=== PATIENT | female | born 1980 | race Caucasian/White ===

== ENCOUNTER 2016-09-15 08:03 | Emergency (ER) | payer OTHER ==
[2016-09-15 08:49] LABS: BASO % 0.2 % (0.0-1.0); EOS # 0.1 K/mm3 (0.0-0.50); EOS % 0.6 % (0.0-3.0); LARGE UNSTAINED CELL # 0.1 K/mm3 (0.0-0.4); LARGE UNSTAINED CELL % 0.7 % (0.0-4.0); LYMPH # 0.6 K/mm3 (1.5-4.5); LYMPH % 3.7 % (24.0-44.0); MEAN CORPUSCULAR HEMOGLOBIN 29.2 pg (27.0-33.0); MEAN CORPUSCULAR HGB CONC 32.5 g/dl (32.0-36.5); MEAN CORPUSCULAR VOLUME 89.8 fl (80.0-96.0); MONO # 0.7 K/mm3 (0.0-0.8); MONO % 5.1 % (0.0-5.0); NEUTROPHILS % 89.7 % (36.0-66.0); PLATELET COUNT, AUTOMATED 316 k/mm3 (150-450); RED CELL DISTRIBUTION WIDTH 12.4 % (11.5-14.5); WHITE BLOOD COUNT 13.4 K/mm3 (4.0-10.0)
[2016-09-15 09:08] LABS: CONTROL LINE HCG INT CTR LINE PRESENT
[2016-09-15 09:17] LABS: ANION GAP 9 MEQ/L (8-16); BLOOD UREA NITROGEN 8 MG/DL (7-18); CALCIUM LEVEL 8.2 MG/DL (8.5-10.1); CARBON DIOXIDE LEVEL 24 MEQ/L (21-32); CHLORIDE LEVEL 103 MEQ/L (98-107); CREATININE FOR GFR 0.83 MG/DL (0.55-1.02); GLOMERULAR FILTRATION RATE > 60.0 (>60); GLUCOSE, FASTING 143 MG/DL (70-105); MAGNESIUM LEVEL 1.6 MG/DL (1.8-2.4); POTASSIUM SERUM 3.6 MEQ/L (3.5-5.1); SODIUM LEVEL 136 MEQ/L (136-145)
[2016-09-15 09:23] LABS: INR 1.29
[2016-09-15] MEDS ORDERED: PENICILLIN V POTASSIUM 500 MG TAB As Ordered ONE (09:23)
[2016-09-15] MEDS ORDERED: ISOVUE-370 76% 100ML VIAL (Q9967) As Ordered ONE (09:33)
[2016-09-15] MEDS ORDERED: MAGNESIUM SULFATE 1 GM/100 ML D5W BAG (10MG/ML) (J3475) As Ordered ONE (09:54)
[2016-09-15] MEDS ORDERED: ACETAMINOPHEN 325 MG TAB As Ordered ONE (11:00)
--- NOTE | 2016-09-15 11:06 | EDDOCDS ---
Nurse's Notes [facility] Name: Dior Trujillo Age: 35 yrs Sex: Female : 1980 Arrival Date: 09/15/2016 Time: 08:03 Bed 15 Private MD: Sathya Diagnosis: Syncope and collapse-Brugado syndrome Presentation: 09/15 08:07 Presenting complaint: Patient states: sore throat and states she passed out 3 times pml while trying to take a drink this AM. unwitnessed events. states she fell to the floor during events. Risk factors: Stridor is not present. Drooling is not present. Shortness of breath is not present. Cellulitis is not present. Adult Sepsis Screening: The patient does not have new or worsening altered mentation. Patient's respiratory rate is less than 22. Systolic blood pressure is greater than 100. Patient has a qSOFA score of 0- Negative Sepsis Screen. Suicide/Homicide risk assessment- the patient denies having any suicidal and/or homicidal ideations and does not present with any other emotional, behavioral or mental health complaints. Status: Patient is not a public services librarian or dependent. Transition of care: patient was not received from another setting of care. 08:07 Acuity: TAMMIE Level 3 pml 08:07 Method Of Arrival: Walkin/Carried/Asstd pml Triage Assessment: 08:09 General: Appears in no apparent distress, Behavior is appropriate for age, cooperative. pml Pain: Location: throat Pain currently is 7 out of 10 on a pain scale. HIV screening NA for this visit Offered previously. EENT: Reports difficulty swallowing pain when swallowing. 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 Zyrtec 10 mg oral TbDL 10 mg daily - PMHx: none; - PSHx: none; - Social history: Smoking status: Patient states was never smoker of tobacco. No barriers to communication noted, The patient speaks fluent Yoruba, Speaks appropriately for age. - Family history: Pertinent for heart disease. - : The pt / caregiver states he / she is not on anticoagulants. Home medication list is obtained from the patient. - Exposure Risk Screening:: None identified. Screenin:44 Screening information is obtained from the patient. Fall risk: At risk due to prior jjr history of falls, The following interventions are performed due to a positive Fall Risk Screen: added to special handling. Assistance ADL's: requires no assistance with activities of daily living. Abuse/DV Screen: The patient / caregiver reports he/she is: not in a situation that causes fear, pain or injury. Nutritional screening: No deficits noted. Advance Directives: There is no active DNR order. home support is adequate. 08:45 Fall Risk. jjr Assessment: 08:43 General: Appears in no apparent distress, well nourished, well groomed, Behavior is jjr appropriate for age. Pain: Location: throat. Neurological: No deficits noted. Reports dizziness, a syncopal episode. EENT: Throat is reddened. Cardiovascular: Rhythm is sinus tachycardia Chest pain is denied. Respiratory: Airway is patent Respiratory effort is even, unlabored, Respiratory pattern is regular. GI: Reports tolerance of fluids, Denies diarrhea, vomiting. Derm: No deficits noted. 09:27 General: Appears in no apparent distress, comfortable, Behavior is appropriate for age, kc3 cooperative. Pain: Denies pain. Neurological: Level of Consciousness is awake, alert, obeys commands, Oriented to person, place, time. Cardiovascular: Rhythm is sinus rhythm Chest pain is denied. Respiratory: Airway is patent Respiratory effort is even, unlabored. Derm: Skin is pink, warm & dry. 10:20 General: Appears in no apparent distress, comfortable, Behavior is appropriate for age, kc3 cooperative, Pt assisted onto bed esquivel and back to comfortable position in bed. Family at bedside. . Pain: Denies pain. Neurological: Level of Consciousness is awake, alert, obeys commands, Oriented to person, place, time. Cardiovascular: Rhythm is sinus tachycardia. Respiratory: Airway is patent Respiratory effort is even, unlabored. Derm: Skin is pink, warm & dry. 11:02 General: Appears in no apparent distress, comfortable, Behavior is appropriate for age, kc3 cooperative. Pain: Denies pain. Neurological: Level of Consciousness is awake, alert, obeys commands, Oriented to person, place, time. Cardiovascular: Rhythm is sinus rhythm Chest pain is denied. Respiratory: Respiratory effort is even, unlabored. Derm: Skin is pink, warm & dry. Vital Signs: 08:09 BP 131 / 71; Pulse 110; Resp 20; Temp 99.9(O); Pulse Ox 95% on R/A; Weight 111.13 kg; pml Height 5 ft. 5 in. (165.10 cm); Pain 7/10; 08:52 BP 125 / 65 RA Supine (auto/lg); Pulse 97; jjr 08:52 BP 121 / 63 RA Sitting (auto/lg); Pulse 111; jjr 08:52 BP 122 / 65 RA Standing (auto/lg); Pulse 105; jjr 08:52 Pulse 98 MON; Pulse Ox 100% ; kc3 08:53 BP 121 / 65 (auto/); kc3 09:07 Pulse 96 MON; Pulse Ox 100% ; kc3 09:08 BP 121 / 62 (auto/); kc3 09:22 Pulse 94 MON; Pulse Ox 97% ; kc3 09:23 BP 119 / 65 (auto/); kc3 09:37 Pulse 96 MON; Pulse Ox 99% ; kc3 09:38 BP 122 / 68 (auto/); kc3 09:52 Pulse 110 MON; Pulse Ox 100% ; kc3 09:53 BP 140 / 81 (auto/); kc3 10:07 Pulse 100 MON; Pulse Ox 97% ; kc3 10:08 BP 136 / 76 (auto/); kc3 10:22 Pulse 100 MON; Pulse Ox 97% ; kc3 10:23 BP 138 / 74 (auto/); kc3 10:37 Pulse 102 MON; Pulse Ox 99% ; kc3 10:38 BP 140 / 80 (auto/); kc3 11:02 BP 135 / 82; Pulse 100; Resp 20; Temp 101.1; Pulse Ox 97% on R/A; Pain 0/10; kc3 08:09 Body Mass Index 40.77 (111.13 kg, 165.10 cm) pml 08:52 tolerated position changes without dizziness jjr 11:02 Dr. Garcia aware of pt temp and pt medicated. kc3 Vitals: 08:09 Log In Time: September 15, 2016 at 08:02. pml 08:43 Strep Screen is obtained and tested: Positive. jr ED Course: 08:05 Patient visited by Miesha Cabello. mm15 08:05 Sathya is Private Physician. mm15 08:05 Patient moved to Waiting mm15 08:08 Triage Initiated pml 08:10 Patient visited by Keira MoiseCECE. pml 08:11 Renata Kelsey MD is Attending Physician. ml 08:11 Patient visited by Renata Kelsey MD. ml 08:11 Patient moved to 15 pml 08:23 EKG done. (by ED staff). Reviewed by Renata Kelsey MD. jrd 08:42 PTT Sent. jjr 08:42 PT/INR Sent. jjr 08:43 HCG,Serum Qualitative Sent. jjr 08:43 MED Profile Sent. jjr 08:43 CBC with Diff Sent. jjr 08:43 Inserted saline lock: 20 gauge in left antecubital area and blood collected. Labs jjr drawn. (by ED staff). Sent per order to lab. 08:44 The patient / caregiver is instructed regarding the plan of care and ED course. Cardiac jjr monitor on. Pulse ox on. NIBP on. 08:45 Patient visited by Yahaira Castle RN. jjr 09:00 MAGNESIUM LEVEL Sent. jjr 09:00 FT4&TSH PANEL Sent. jjr 09:01 Lulu Hilton,RN is Primary Nurse. kc3 09:19 Patient visited by Lulu Hilton,CECE. kc3 10:18 [facility] Payment Agreement was scanned into [employer] and attached to record. mpb 10:48 No procedures done that require assistance. kc3 Administered Medications: 08:43 Drug: NS 0.9% 1000 ml [sodium chloride 0.9 % intravenous solution] Route: IV; Rate: jjr bolus; Site: left antecubital; 10:49 Follow up: IV Status: Completed infusion kc3 09:26 Drug: Penicillin VK 500 mg [penicillin V potassium 250 mg tablet (2 tabs)] Route: PO; kc3 10:02 Drug: Magnesium Sulfate 1 grams [magnesium sulfate 1 gram/100 mL in dextrose 5 % ead intravenous piggyback] {Co-Signature: dy (Wally Mancera RN).} Route: IVPB; Infused Over: 0.5 hrs; Site: left antecubital; 10:49 Follow up: IV Status: Completed infusion kc3 11:04 Drug: Acetaminophen 975 mg [acetaminophen 325 mg tablet (3 tabs)] Route: PO; kc3 Order Results: Lab Order: CBC with Diff; SPEC'M 09/15/16 08:39 Test: WHITE BLOOD COUNT; Value: 13.4; Range: 4.0-10.0; Abnormal: Above high normal; Units: K/mm3; Status: F Test: RED BLOOD COUNT; Value: 4.19; Range: 4.00-5.40; Units: M/mm3; Status: F Test: HEMOGLOBIN; Value: 12.2; Range: 12.0-16.0; Units: g/dl; Status: F Test: HEMATOCRIT; Value: 37.6; Range: 36.0-47.0; Units: %; Status: F Test: MEAN CORPUSCULAR VOLUME; Value: 89.8; Range: 80.0-96.0; Units: fl; Status: F Test: MEAN CORPUSCULAR HEMOGLOBIN; Value: 29.2; Range: 27.0-33.0; Units: pg; Status: F Test: MEAN CORPUSCULAR HGB CONC; Value: 32.5; Range: 32.0-36.5; Units: g/dl; Status: F Test: RED CELL DISTRIBUTION WIDTH; Value: 12.4; Range: 11.5-14.5; Units: %; Status: F Test: PLATELET COUNT, AUTOMATED; Value: 316; Range: 150-450; Units: k/mm3; Status: F Test: NEUTROPHILS %; Value: 89.7; Range: 36.0-66.0; Abnormal: Above high normal; Units: %; Status: F Test: LYMPH %; Value: 3.7; Range: 24.0-44.0; Abnormal: Below low normal; Units: %; Status: F Test: MONO %; Value: 5.1; Range: 0.0-5.0; Abnormal: Above high normal; Units: %; Status: F Test: EOS %; Value: 0.6; Range: 0.0-3.0; Units: %; Status: F Test: BASO %; Value: 0.2; Range: 0.0-1.0; Units: %; Status: F Test: LARGE UNSTAINED CELL %; Value: 0.7; Range: 0.0-4.0; Units: %; Status: F Test: NEUTROPHILS #; Value: 12.0; Range: 1.8-7.7; Abnormal: Above high normal; Units: K/mm3; Status: F Test: LYMPH #; Value: 0.6; Range: 1.5-4.5; Abnormal: Below low normal; Units: K/mm3; Status: F Test: MONO #; Value: 0.7; Range: 0.0-0.8; Units: K/mm3; Status: F Test: EOS #; Value: 0.1; Range: 0.0-0.50; Units: K/mm3; Status: F Test: BASO #; Value: 0.0; Range: 0.0-0.2; Units: K/mm3; Status: F Test: LARGE UNSTAINED CELL #; Value: 0.1; Range: 0.0-0.4; Units: K/mm3; Status: F Lab Order: MED Profile; [facility] 09/15/16 08:39 Test: GLUCOSE, FASTING; Value: 143; Range: 70-105; Abnormal: Above high normal; Units: MG/DL; Status: F Test: BLOOD UREA NITROGEN; Value: 8; Range: 7-18; Units: MG/DL; Status: F Test: CREATININE FOR GFR; Value: 0.83; Range: 0.55-1.02; Units: MG/DL; Status: F Test: SODIUM LEVEL; Range: 136-145; Units: MEQ/L; Status: I Test: POTASSIUM SERUM; Range: 3.5-5.1; Units: MEQ/L; Status: I Test: CHLORIDE LEVEL; Range: 98-107; Units: MEQ/L; Status: I Test: CARBON DIOXIDE LEVEL; Range: 21-32; Units: MEQ/L; Status: I Test: ANION GAP; Range: 8-16; Units: MEQ/L; Status: I Test: CALCIUM LEVEL; Range: 8.5-10.1; Units: MG/DL; Status: I Test: GLOMERULAR FILTRATION RATE; Value: > 60.0; Range: >60; Status: F Test: SODIUM LEVEL; Value: 136; Range: 136-145; Units: MEQ/L; Status: F Test: POTASSIUM SERUM; Value: 3.6; Range: 3.5-5.1; Units: MEQ/L; Status: F Test: CHLORIDE LEVEL; Value: 103; Range: 98-107; Units: MEQ/L; Status: F Test: CARBON DIOXIDE LEVEL; Value: 24; Range: 21-32; Units: MEQ/L; Status: F Test: ANION GAP; Value: 9; Range: 8-16; Units: MEQ/L; Status: F Test: CALCIUM LEVEL; Value: 8.2; Range: 8.5-10.1; Abnormal: Below low normal; Units: MG/DL; Status: F Test Note: ; Units are mL/min/1.73 m2 Chronic Kidney Disease Staging per NKF: Stage I & II GFR >=60 Normal to Mildly Decreased Stage III GFR 30-59 Moderately Decreased Stage IV GFR 15-29 Severely Decreased Stage V GFR <15 Very Little GFR Left ESRD GFR <15 on WIRE WORKER Lab Order: HCG,Serum Qualitative; 09/15/16 08:39 Test: HCG, SERUM QUALITATIVE; Value: NEGATIVE; Range: NEGATIVE; Status: F Lab Order: PT/INR; 09/15/16 08:39 Test: PROTHROMBIN TIME; Value: 16.2; Range: 12.3-14.5; Abnormal: Above high normal; Units: SECONDS; Status: F Test: INR; Value: 1.29; Status: F Test Note: ; THERAPUTIC HUMAN INR VALUES INDICATIONS NORMAL RANGES PROPHYLAXIS/TREATMENT OF: VENOUS THROMBOSIS 2.0-3.0 PULMONARY EMBOLISM 2.0-3.0 PREVENTION OF SYSTEMIC EMBOLISM FROM: TISSUE HEART VALVES 2.0-3.0 ACUTE MYOCARDIAL INFARCTION 2.0-3.0 VALVULAR HEART DISEASE 2.0-3.0 ATRIAL FIBRILLATION 2.0-3.0 MECHANICAL VALVES(HIGH RISK) 2.5-3.5 RECURRENT MYOCARDIAL INFARCTION 2.5-3.5 Lab Order: PTT; 09/15/16 08:39 Test: PARTIAL THROMBOPLASTIN TIME; Value: 30.9; Range: 26.6-37.1; Units: SECONDS; Status: F Lab Order: FT4&TSH PANEL; 09/15/16 08:39 Test: THYROID STIMULATING HORMONE; Value: 0.643; Range: 0.358-3.740; Units: uIU/ML; Status: F Test: FREE T4; Value: 1.00; Range: 0.76-1.46; Units: NG/DL; Status: F Lab Order: MAGNESIUM LEVEL; SPEC'M 09/15/16 08:39 Test: MAGNESIUM LEVEL; Value: 1.6; Range: 1.8-2.4; Abnormal: Below low normal; Units: MG/DL; Status: F Lab Order: CIP; SPEC'M 09/15/16 08:39 Test: CPK CREATINE PHOSPHOKINASE; Value: 48; Range: 26-192; Units: U/L; Status: F Test: CK-MB VALUE MASS; Value: 1.0; Range: 0.0-3.6; Units: NG/ML; Status: F Test: MB/CK RELATIVE INDEX; Value: 2.08; Range: < OR =4; Status: F Test Note: ; DIAGNOSIS CRITERIA MMB ng/ml Relative Index (RI) NON-AMI < or = 5 N/A GARCIA ZONE > 5 < or = 4 AMI > 5 > 4 Lab Order: Troponin; SPEC09/15/16 08:39 Test: TROPONIN I; Value: < 0.02; Range: < 0.10; Units: NG/ML; Status: F Test Note: ; Troponin I Reference Interval for [place] LOCI: 99th Percentile= 0.00-0.045 ng/ml Risk Stratification: <= 0.10 ng/ml Decreased Risk for Adverse Clinical Events. 0.10-1.50 ng/ml Increased Risk for Adverse Clinical Events. Evaluation of additional criterion and/or repeat testing in 2-6 hours is suggested to rule out myocardial damage. >= 1.50 ng/ml Indicative of Myocardial Injury. Outcome: 09:44 ER care complete, transfer ordered by Provider. 10:48 Discharge Assessment: patient administered narcotics - no. CT Study completed. [facility] accompany Pt. 11:03 The following High Risk Discharge criteria are identified: None. Transferred to [address] by EMS ground [facility] report to accompanying personnel aden Bernal, Robbie Spencer, medic, Transfer form completed. x-rays sent w/ patient. Condition: stable. 11:05 [facility] Signatures: Renata Kelsey MD MD ml Raymond, Jessica, RN RN Keira Petersen RN RN Miesha Hoyt mm15 Cheryl AlvaRN RN Poncho French, SMOG TECHNICIAN SMOG TECHNICIAN jrd Lulu Hilton RN RN kc3 Jasper Shin, Reg Reg mpb Wally Mancera RN dy Corrections: (The following items were deleted from the chart) 08:43 08:42 MAGNESIUM LEVEL+LAB sent. jjr EDMS 08:43 08:43 FT4&TSH PANEL+LAB sent. jr EDMS MTDD
--- NOTE | 2016-09-15 11:06 | EDDOCDS ---
Physician Documentation [facility] Name: Dior Trujillo Age: 35 yrs Sex: Female : 1980 Arrival Date: 09/15/2016 Time: 08:03 Bed 15 Private MD: Sathya Disposition: 09/15 11:02 Critical Care:. ml Disposition: 09/15/16 09:44 Transfer ordered to [facility]. Diagnosis is Syncope and collapse - Brugado syndrome. - Reason for transfer: Higher level of care. - Accepting physician is dr ramirez. - Condition is Unchanged. - Problem is new. - Symptoms are unchanged. Historical: - Allergies: seafood; - Home Meds: 1. Zyrtec 10 mg oral TbDL 10 mg daily - PMHx: none; - PSHx: none; - Social history: Smoking status: Patient states was never smoker of tobacco. No barriers to communication noted, The patient speaks fluent [place], Speaks appropriately for age. - Family history: Pertinent for heart disease. - : The pt / caregiver states he / she is not on anticoagulants. Home medication list is obtained from the patient. - Exposure Risk Screening:: None identified. 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 5 in. (165.10 cm); Pain 7/10; 08:52 BP 125 / 65 RA Supine (auto/lg); Pulse 97; jjr 08:52 BP 121 / 63 RA Sitting (auto/lg); Pulse 111; jjr 08:52 BP 122 / 65 RA Standing (auto/lg); Pulse 105; jjr 08:52 Pulse 98 MON; Pulse Ox 100% ; kc3 08:53 BP 121 / 65 (auto/); kc3 09:07 Pulse 96 MON; Pulse Ox 100% ; kc3 09:08 BP 121 / 62 (auto/); kc3 09:22 Pulse 94 MON; Pulse Ox 97% ; kc3 09:23 BP 119 / 65 (auto/); kc3 09:37 Pulse 96 MON; Pulse Ox 99% ; kc3 09:38 BP 122 / 68 (auto/); kc3 09:52 Pulse 110 MON; Pulse Ox 100% ; kc3 09:53 BP 140 / 81 (auto/); kc3 10:07 Pulse 100 MON; Pulse Ox 97% ; kc3 10:08 BP 136 / 76 (auto/); kc3 10:22 Pulse 100 MON; Pulse Ox 97% ; kc3 10:23 BP 138 / 74 (auto/); kc3 10:37 Pulse 102 MON; Pulse Ox 99% ; kc3 10:38 BP 140 / 80 (auto/); kc3 11:02 BP 135 / 82; Pulse 100; Resp 20; Temp 101.1; Pulse Ox 97% on R/A; Pain 0/10; kc3 08:09 Body Mass Index 40.77 (111.13 kg, 165.10 cm) pml 08:52 tolerated position changes without dizziness jjr 11:02 Dr. Garcia aware of pt temp and pt medicated. kc3 MDM: 08:13 ECG WITH READING ER PHYS+CARDIAG ordered. EDMS 08:20 IV Saline Lock ordered. ml 08:20 NS 0.9% 1000 ml IV at bolus once ordered. ml 08:20 Strep Screen, Nursing ordered. ml 08:20 Aviation Electrical Technician/Pulse Ox/q 15 min VS ordered. ml 08:20 Rhythm Strip to chart ordered. ml 08:20 Orthostatic VS ordered. ml 08:20 CBC with Diff Ordered. EDMS 08:20 MED Profile Ordered. EDMS 08:20 HCG,Serum Qualitative Ordered. EDMS 08:31 Chest, 1 View Ordered. EDMS 08:37 PT/INR Ordered. EDMS 08:37 PTT Ordered. EDMS 08:45 FT4&TSH PANEL Ordered. EDMS 08:45 MAGNESIUM LEVEL Ordered. EDMS 09:04 Penicillin VK 500 mg PO once ordered. ml 09:05 CIP Ordered. EDMS 09:05 Troponin Ordered. EDMS 09:06 CBC with Diff Reviewed. ml 09:13 HCG,Serum Qualitative Reviewed. ml 09:27 MED Profile Reviewed. ml 09:27 PT/INR Reviewed. ml 09:27 MAGNESIUM LEVEL Reviewed. ml 09:27 HCG,Serum Qualitative Reviewed. ml 09:27 PTT Reviewed. ml 09:27 FT4&TSH PANEL Reviewed. ml 09:28 CT Chest Angio R/O PE Ordered. EDMS 09:41 CIP Reviewed. ml 09:41 Troponin Reviewed. ml 09:42 Magnesium Sulfate 1 grams IVPB once over 0.5 hrs; administer over 30 min ordered. ml 10:18 Financial registration complete. mpb 10:18 [facility] Payment Agreement was scanned into [employer] and attached to record. mpb 10:59 Acetaminophen Tablet 975 mg PO once ordered. ml Administered Medications: 08:43 Drug: NS 0.9% 1000 ml [sodium chloride 0.9 % intravenous solution] Route: IV; Rate: jjr bolus; Site: left antecubital; 10:49 Follow up: IV Status: Completed infusion kc3 09:26 Drug: Penicillin VK 500 mg [penicillin V potassium 250 mg tablet (2 tabs)] Route: PO; kc3 10:02 Drug: Magnesium Sulfate 1 grams [magnesium sulfate 1 gram/100 mL in dextrose 5 % ead intravenous piggyback] {Co-Signature: miki (Wally Mancera RN).} Route: IVPB; Infused Over: 0.5 hrs; Site: left antecubital; 10:49 Follow up: IV Status: Completed infusion kc3 11:04 Drug: Acetaminophen 975 mg [acetaminophen 325 mg tablet (3 tabs)] Route: PO; kc3 Critical Care Time: 11:02 Critical care time: Bedside Care: 90 minutes, Consultation: 10 minutes. Total time: 100 ml minutes Signatures: Dispatcher [employer] EDMS Renata Kelsey MD MD Keira Moise,RN Lulu Moon RN RN kc3 Jasper Shin, Reg Reg mpb Yahaira Castle RN, Emily RN ead David Youngs RN dy The chart was reviewed and I authenticate all verbal orders and agree with the evaluation and treatment provided.Corrections: (The following items were deleted from the chart) 08:43 08:31 FT4&TSH PANEL+LAB ordered. EDMS EDMS 08:43 08:34 MAGNESIUM LEVEL+LAB ordered. EDMS EDMS Attachments: 10:18 [facility] Payment Agreement mpb MTDD
--- NOTE | 2016-09-15 13:56 | REP ---
AP PORTABLE CHEST: 09/15/2016. Clinical history: Syncope. No prior study. Findings: The lungs are well inflated. There is no effusion, acute infiltrate, atelectasis or mass. The heart, mediastinal and hilar contours are normal. Airway intact and there is no mediastinal widening. The aorta was unremarkable. Impression: 1. Negative portable chest for acute finding. Signed by Mansoor Kwok MD 09/15/2016 07:24 P
--- NOTE | 2016-09-15 14:23 | REP ---
CT ANGIOGRAM CHEST: 09/15/2016. Clinical history: Syncope. Comparison: Portable chest this date. Technique: A bolus of 75 mL of Isovue [address] pulmonary angiogram protocol including thick slab MIP coronal and sagittal reformats. Findings: Lung zamorano show some minor dependent atelectatic changes and without infiltrate, effusion or mass. There is no pleural thickening or pleural plaque. No pneumothorax, or pneumomediastinum. Heart size upper limits normal. There is no pericardial thickening or effusion. I see no hiatal hernia. The aorta is without aneurysm or dissection. The main, right and left pulmonary arteries are without filling defects in the mediastinum. The lobar, segmental and visible subsegmental pulmonary arteries are also without filling defect or vessel cutoff to suggest pulmonary embolism. No mediastinal or hilar pathologic sized adenopathy and the axillary and supraclavicular region show no mass or adenopathy. Bone windows show the sternum, manubrium, medial clavicles, humeral heads, scapulae, ribs and spine without fracture or acute finding. A few small marginal osteophytes mid and lower thoracic spine which I would regard as normal for age. In the upper abdomen visualized portion of liver was intact. The spleen is not enlarged. Only a portion of gallbladder and pancreas included, but were unremarkable. Adrenal glands normal. Impression: 1. Negative CT pulmonary angiogram for pulmonary embolism. There is no effusion, acute infiltrate or mass. Lungs somewhat hypoinflated in this supine exam but no acute finding. Aorta without aneurysm or dissection. No pneumothorax, pneumomediastinum or other acute finding. 2. No acute finding in the upper abdomen. Signed by Mansoor Kwok MD 09/15/2016 07:26 P
--- NOTE | 2016-09-15 19:31 | ECGEPIP ---
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
--- NOTE | 2016-09-17 12:06 | EDDOCDS ---
Nurse's Notes [facility] Name: Angelique Trujillo Age: 35 yrs Sex: Female : 1980 Arrival Date: 09/15/2016 Time: 08:03 Bed 15 Private MD: Sathya Diagnosis: Syncope and collapse-Brugado syndrome Presentation: 09/15 08:07 Presenting complaint: Patient states: sore throat and states she passed out 3 times pml while trying to take a drink this AM. unwitnessed events. states she fell to the floor during events. Risk factors: Stridor is not present. Drooling is not present. Shortness of breath is not present. Cellulitis is not present. Adult Sepsis Screening: The patient does not have new or worsening altered mentation. Patient's respiratory rate is less than 22. Systolic blood pressure is greater than 100. Patient has a qSOFA score of 0- Negative Sepsis Screen. Suicide/Homicide risk assessment- the patient denies having any suicidal and/or homicidal ideations and does not present with any other emotional, behavioral or mental health complaints. Status: Patient is not a director of medical staff services or dependent. Transition of care: patient was not received from another setting of care. 08:07 Acuity: TAMMIE Level 3 pml 08:07 Method Of Arrival: Walkin/Carried/Asstd pml Triage Assessment: 08:09 General: Appears in no apparent distress, Behavior is appropriate for age, cooperative. pml Pain: Location: throat Pain currently is 7 out of 10 on a pain scale. HIV screening NA for this visit Offered previously. EENT: Reports difficulty swallowing pain when swallowing. 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 Zyrtec 10 mg oral TbDL 10 mg daily - PMHx: none; - PSHx: none; - Social history: Smoking status: Patient states was never smoker of tobacco. No barriers to communication noted, The patient speaks fluent Estonian, Speaks appropriately for age. - Family history: Pertinent for heart disease. - : The pt / caregiver states he / she is not on anticoagulants. Home medication list is obtained from the patient. - Exposure Risk Screening:: None identified. Screenin:44 Screening information is obtained from the patient. Fall risk: At risk due to prior jjr history of falls, The following interventions are performed due to a positive Fall Risk Screen: added to special handling. Assistance ADL's: requires no assistance with activities of daily living. Abuse/DV Screen: The patient / caregiver reports he/she is: not in a situation that causes fear, pain or injury. Nutritional screening: No deficits noted. Advance Directives: There is no active DNR order. home support is adequate. 08:45 Fall Risk. jjr Assessment: 08:43 General: Appears in no apparent distress, well nourished, well groomed, Behavior is jjr appropriate for age. Pain: Location: throat. Neurological: No deficits noted. Reports dizziness, a syncopal episode. EENT: Throat is reddened. Cardiovascular: Rhythm is sinus tachycardia Chest pain is denied. Respiratory: Airway is patent Respiratory effort is even, unlabored, Respiratory pattern is regular. GI: Reports tolerance of fluids, Denies diarrhea, vomiting. Derm: No deficits noted. 09:27 General: Appears in no apparent distress, comfortable, Behavior is appropriate for age, kc3 cooperative. Pain: Denies pain. Neurological: Level of Consciousness is awake, alert, obeys commands, Oriented to person, place, time. Cardiovascular: Rhythm is sinus rhythm Chest pain is denied. Respiratory: Airway is patent Respiratory effort is even, unlabored. Derm: Skin is pink, warm & dry. 10:20 General: Appears in no apparent distress, comfortable, Behavior is appropriate for age, kc3 cooperative, Pt assisted onto bed esquivel and back to comfortable position in bed. Family at bedside. . Pain: Denies pain. Neurological: Level of Consciousness is awake, alert, obeys commands, Oriented to person, place, time. Cardiovascular: Rhythm is sinus tachycardia. Respiratory: Airway is patent Respiratory effort is even, unlabored. Derm: Skin is pink, warm & dry. 11:02 General: Appears in no apparent distress, comfortable, Behavior is appropriate for age, kc3 cooperative. Pain: Denies pain. Neurological: Level of Consciousness is awake, alert, obeys commands, Oriented to person, place, time. Cardiovascular: Rhythm is sinus rhythm Chest pain is denied. Respiratory: Respiratory effort is even, unlabored. Derm: Skin is pink, warm & dry. Vital Signs: 08:09 BP 131 / 71; Pulse 110; Resp 20; Temp 99.9(O); Pulse Ox 95% on R/A; Weight 111.13 kg; pml Height 5 ft. 5 in. (165.10 cm); Pain 7/10; 08:52 BP 125 / 65 RA Supine (auto/lg); Pulse 97; jjr 08:52 BP 121 / 63 RA Sitting (auto/lg); Pulse 111; jjr 08:52 BP 122 / 65 RA Standing (auto/lg); Pulse 105; jjr 08:52 Pulse 98 MON; Pulse Ox 100% ; kc3 08:53 BP 121 / 65 (auto/); kc3 09:07 Pulse 96 MON; Pulse Ox 100% ; kc3 09:08 BP 121 / 62 (auto/); kc3 09:22 Pulse 94 MON; Pulse Ox 97% ; kc3 09:23 BP 119 / 65 (auto/); kc3 09:37 Pulse 96 MON; Pulse Ox 99% ; kc3 09:38 BP 122 / 68 (auto/); kc3 09:52 Pulse 110 MON; Pulse Ox 100% ; kc3 09:53 BP 140 / 81 (auto/); kc3 10:07 Pulse 100 MON; Pulse Ox 97% ; kc3 10:08 BP 136 / 76 (auto/); kc3 10:22 Pulse 100 MON; Pulse Ox 97% ; kc3 10:23 BP 138 / 74 (auto/); kc3 10:37 Pulse 102 MON; Pulse Ox 99% ; kc3 10:38 BP 140 / 80 (auto/); kc3 11:02 BP 135 / 82; Pulse 100; Resp 20; Temp 101.1; Pulse Ox 97% on R/A; Pain 0/10; kc3 08:09 Body Mass Index 40.77 (111.13 kg, 165.10 cm) pml 08:52 tolerated position changes without dizziness jjr 11:02 Dr. Garcia aware of pt temp and pt medicated. kc3 Vitals: 08:09 Log In Time: September 15, 2016 at 08:02. pml 08:43 Strep Screen is obtained and tested: Positive. jr ED Course: 08:05 Patient visited by Miesha Cabello. mm15 08:05 Sathya is Private Physician. mm15 08:05 Patient moved to Waiting mm15 08:08 Triage Initiated pml 08:10 Patient visited by Keira MoiseCECE. pml 08:11 Renata Kelsey MD is Attending Physician. ml 08:11 Patient visited by Renata Kelsey MD. ml 08:11 Patient moved to 15 pml 08:23 EKG done. (by ED staff). Reviewed by Renata Kelsey MD. jrd 08:42 PTT Sent. jjr 08:42 PT/INR Sent. jjr 08:43 HCG,Serum Qualitative Sent. jjr 08:43 MED Profile Sent. jjr 08:43 CBC with Diff Sent. jjr 08:43 Inserted saline lock: 20 gauge in left antecubital area and blood collected. Labs jjr drawn. (by ED staff). Sent per order to lab. 08:44 The patient / caregiver is instructed regarding the plan of care and ED course. Cardiac jjr monitor on. Pulse ox on. NIBP on. 08:45 Patient visited by Yahaira Castle RN. jjr 09:00 MAGNESIUM LEVEL Sent. jjr 09:00 FT4&TSH PANEL Sent. jjr 09:01 Lulu Hilton,RN is Primary Nurse. kc3 09:19 Patient visited by Lulu Hilton,CECE. kc3 10:18 [facility] [place] Payment Agreement was scanned into [employer] and attached to record. mpb 10:48 No procedures done that require assistance. kc3 14:31 Chest, 1 View Returned. EDMS 14:32 CT Chest Angio R/O PE Returned. EDMS 19:34 EKG-ADULT Returned. EDMS 09/16 14:07 T-Sheet-- Draft Copy was scanned into [employer] and attached to record. gb 14:08 ECG/EKG was scanned into [employer] and attached to record. gb Administered Medications: 09/15 08:43 Drug: NS 0.9% 1000 ml [sodium chloride 0.9 % intravenous solution] Route: IV; Rate: jjr bolus; Site: left antecubital; 10:49 Follow up: IV Status: Completed infusion kc3 09:26 Drug: Penicillin VK 500 mg [penicillin V potassium 250 mg tablet (2 tabs)] Route: PO; kc3 10:02 Drug: Magnesium Sulfate 1 grams [magnesium sulfate 1 gram/100 mL in dextrose 5 % ead intravenous piggyback] {Co-Signature: dy (Wally Mancera RN).} Route: IVPB; Infused Over: 0.5 hrs; Site: left antecubital; 10:49 Follow up: IV Status: Completed infusion kc3 11:04 Drug: Acetaminophen 975 mg [acetaminophen 325 mg tablet (3 tabs)] Route: PO; kc3 Order Results: Lab Order: CBC with Diff; SPEC'M 09/15/16 08:39 Test: WHITE BLOOD COUNT; Value: 13.4; Range: 4.0-10.0; Abnormal: Above high normal; Units: K/mm3; Status: F Test: RED BLOOD COUNT; Value: 4.19; Range: 4.00-5.40; Units: M/mm3; Status: F Test: HEMOGLOBIN; Value: 12.2; Range: 12.0-16.0; Units: g/dl; Status: F Test: HEMATOCRIT; Value: 37.6; Range: 36.0-47.0; Units: %; Status: F Test: MEAN CORPUSCULAR VOLUME; Value: 89.8; Range: 80.0-96.0; Units: fl; Status: F Test: MEAN CORPUSCULAR HEMOGLOBIN; Value: 29.2; Range: 27.0-33.0; Units: pg; Status: F Test: MEAN CORPUSCULAR HGB CONC; Value: 32.5; Range: 32.0-36.5; Units: g/dl; Status: F Test: RED CELL DISTRIBUTION WIDTH; Value: 12.4; Range: 11.5-14.5; Units: %; Status: F Test: PLATELET COUNT, AUTOMATED; Value: 316; Range: 150-450; Units: k/mm3; Status: F Test: NEUTROPHILS %; Value: 89.7; Range: 36.0-66.0; Abnormal: Above high normal; Units: %; Status: F Test: LYMPH %; Value: 3.7; Range: 24.0-44.0; Abnormal: Below low normal; Units: %; Status: F Test: MONO %; Value: 5.1; Range: 0.0-5.0; Abnormal: Above high normal; Units: %; Status: F Test: EOS %; Value: 0.6; Range: 0.0-3.0; Units: %; Status: F Test: BASO %; Value: 0.2; Range: 0.0-1.0; Units: %; Status: F Test: LARGE UNSTAINED CELL %; Value: 0.7; Range: 0.0-4.0; Units: %; Status: F Test: NEUTROPHILS #; Value: 12.0; Range: 1.8-7.7; Abnormal: Above high normal; Units: K/mm3; Status: F Test: LYMPH #; Value: 0.6; Range: 1.5-4.5; Abnormal: Below low normal; Units: K/mm3; Status: F Test: MONO #; Value: 0.7; Range: 0.0-0.8; Units: K/mm3; Status: F Test: EOS #; Value: 0.1; Range: 0.0-0.50; Units: K/mm3; Status: F Test: BASO #; Value: 0.0; Range: 0.0-0.2; Units: K/mm3; Status: F Test: LARGE UNSTAINED CELL #; Value: 0.1; Range: 0.0-0.4; Units: K/mm3; Status: F Lab Order: MED Profile; [facility] 09/15/16 08:39 Test: GLUCOSE, FASTING; Value: 143; Range: 70-105; Abnormal: Above high normal; Units: MG/DL; Status: F Test: BLOOD UREA NITROGEN; Value: 8; Range: 7-18; Units: MG/DL; Status: F Test: CREATININE FOR GFR; Value: 0.83; Range: 0.55-1.02; Units: MG/DL; Status: F Test: SODIUM LEVEL; Range: 136-145; Units: MEQ/L; Status: I Test: POTASSIUM SERUM; Range: 3.5-5.1; Units: MEQ/L; Status: I Test: CHLORIDE LEVEL; Range: 98-107; Units: MEQ/L; Status: I Test: CARBON DIOXIDE LEVEL; Range: 21-32; Units: MEQ/L; Status: I Test: ANION GAP; Range: 8-16; Units: MEQ/L; Status: I Test: CALCIUM LEVEL; Range: 8.5-10.1; Units: MG/DL; Status: I Test: GLOMERULAR FILTRATION RATE; Value: > 60.0; Range: >60; Status: F Test: SODIUM LEVEL; Value: 136; Range: 136-145; Units: MEQ/L; Status: F Test: POTASSIUM SERUM; Value: 3.6; Range: 3.5-5.1; Units: MEQ/L; Status: F Test: CHLORIDE LEVEL; Value: 103; Range: 98-107; Units: MEQ/L; Status: F Test: CARBON DIOXIDE LEVEL; Value: 24; Range: 21-32; Units: MEQ/L; Status: F Test: ANION GAP; Value: 9; Range: 8-16; Units: MEQ/L; Status: F Test: CALCIUM LEVEL; Value: 8.2; Range: 8.5-10.1; Abnormal: Below low normal; Units: MG/DL; Status: F Test Note: ; Units are mL/min/1.73 m2 Chronic Kidney Disease Staging per NKF: Stage I & II GFR >=60 Normal to Mildly Decreased Stage III GFR 30-59 Moderately Decreased Stage IV GFR 15-29 Severely Decreased Stage V GFR <15 Very Little GFR Left ESRD GFR <15 on LEATHER SPLITTER Lab Order: HCG,Serum Qualitative; [facility]09/15[facility]16 08:39 Test: HCG, SERUM QUALITATIVE; Value: NEGATIVE; Range: NEGATIVE; Status: F Lab Order: PT/INR; [facility] 09/15/16 08:39 Test: PROTHROMBIN TIME; Value: 16.2; Range: 12.3-14.5; Abnormal: Above high normal; Units: SECONDS; Status: F Test: INR; Value: 1.29; Status: F Test Note: ; THERAPUTIC HUMAN INR VALUES INDICATIONS NORMAL RANGES PROPHYLAXIS/TREATMENT OF: VENOUS THROMBOSIS 2.0-3.0 PULMONARY EMBOLISM 2.0-3.0 PREVENTION OF SYSTEMIC EMBOLISM FROM: TISSUE HEART VALVES 2.0-3.0 ACUTE MYOCARDIAL INFARCTION 2.0-3.0 VALVULAR HEART DISEASE 2.0-3.0 ATRIAL FIBRILLATION 2.0-3.0 MECHANICAL VALVES(HIGH RISK) 2.5-3.5 RECURRENT MYOCARDIAL INFARCTION 2.5-3.5 Lab Order: PTT; [facility] 09/15/16 08:39 Test: PARTIAL THROMBOPLASTIN TIME; Value: 30.9; Range: 26.6-37.1; Units: SECONDS; Status: F Lab Order: FT4&TSH PANEL; 09/15/16 08:39 Test: THYROID STIMULATING HORMONE; Value: 0.643; Range: 0.358-3.740; Units: uIU/ML; Status: F Test: FREE T4; Value: 1.00; Range: 0.76-1.46; Units: NG/DL; Status: F Lab Order: MAGNESIUM LEVEL; 09/15/16 08:39 Test: MAGNESIUM LEVEL; Value: 1.6; Range: 1.8-2.4; Abnormal: Below low normal; Units: MG/DL; Status: F Lab Order: CIP; 09/15/16 08:39 Test: CPK CREATINE PHOSPHOKINASE; Value: 48; Range: 26-192; Units: U/L; Status: F Test: CK-MB VALUE MASS; Value: 1.0; Range: 0.0-3.6; Units: NG/ML; Status: F Test: MB/CK RELATIVE INDEX; Value: 2.08; Range: < OR =4; Status: F Test Note: ; DIAGNOSIS CRITERIA MMB ng/ml Relative Index (RI) NON-AMI < or = 5 N/A GARCIA ZONE > 5 < or = 4 AMI > 5 > 4 Lab Order: Troponin; 09/15/16 08:39 Test: TROPONIN I; Value: < 0.02; Range: < 0.10; Units: NG/ML; Status: F Test Note: ; Troponin I Reference Interval for kSARIA LOCI: 99th Percentile= 0.00-0.045 ng/ml Risk Stratification: <= 0.10 ng/ml Decreased Risk for Adverse Clinical Events. 0.10-1.50 ng/ml Increased Risk for Adverse Clinical Events. Evaluation of additional criterion and/or repeat testing in 2-6 hours is suggested to rule out myocardial damage. >= 1.50 ng/ml Indicative of Myocardial Injury. 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: 1980 Requested By: Renata Kelsey; Order Number: [id number] Reading MD: Renata Kelsey; Measurements; Intervals [place]; Rate: 97 P: 35; AK: 170 QRS: -8; QRSD: 125 T: 29; QT: 333; QTc: 424; Interpretive Statements; SINUS RHYTHM; RIGHT BUNDLE BRANCH BLOCK; BRUGADA TYPE 1; NO OLD ECG FOR COMPARISON; ; CLINICALLY CORRELATE; Electronically Signed On 09-15-2016 19:31:12 EST by Renata Kelsey; Radiology Order: Chest, 1 View Test: Chest, 1 View REASON FOR EXAMINATION: syncope - do not wait for hcg; AP PORTABLE CHEST: 09/15/2016.; ; Clinical history: Syncope.; ; No prior study.; ; Findings: The lungs are well inflated. There is no effusion, acute infiltrate,; atelectasis or mass. The heart, mediastinal and hilar contours are normal.; Airway intact and there is no mediastinal widening. The aorta was unremarkable.; ; Impression:; ; 1. Negative portable chest for acute finding.; ; ; Signed by; Mansoor Kwok MD 09/15/2016 07:24 P; Radiology Order: CT Chest Angio R/O PE Test: CT Chest Angio R/O PE REASON FOR EXAMINATION: Syncope; CT ANGIOGRAM CHEST: 09/15/2016.; ; Clinical history: Syncope.; ; Comparison: Portable chest this date.; ; Technique: A bolus of 75 mL of Isovue [address] pulmonary angiogram; protocol including thick slab MIP coronal and sagittal reformats.; ; Findings: Lung zamorano show some minor dependent atelectatic changes and without; infiltrate, effusion or mass. There is no pleural thickening or pleural plaque.; No pneumothorax, or pneumomediastinum. Heart size upper limits normal. There is; no pericardial thickening or effusion. I see no hiatal hernia. The aorta is; without aneurysm or dissection. The main, right and left pulmonary arteries are; without filling defects in the mediastinum. The lobar, segmental and visible; subsegmental pulmonary arteries are also without filling defect or vessel cutoff; to suggest pulmonary embolism. No mediastinal or hilar pathologic sized; adenopathy and the axillary and supraclavicular region show no mass or; adenopathy. Bone windows show the sternum, manubrium, medial clavicles, humeral; heads, scapulae, ribs and spine without fracture or acute finding. A few small; marginal osteophytes mid and lower thoracic spine which I would regard as normal; for age.; ; In the upper abdomen visualized portion of liver was intact. The spleen is not; enlarged. Only a portion of gallbladder and pancreas included, but were; unremarkable. Adrenal glands normal.; ; Impression:; ; 1. Negative CT pulmonary angiogram for pulmonary embolism. There is no; effusion, acute infiltrate or mass. Lungs somewhat hypoinflated in this supine; exam but no acute finding. Aorta without aneurysm or dissection. No; pneumothorax, pneumomediastinum or other acute finding.; ; 2. No acute finding in the upper abdomen.; ; ; Signed by; Mansoor Kwok MD 09/15/2016 07:26 P; Outcome: 09:44 ER care complete, transfer ordered by Provider. 10:48 Discharge Assessment: patient administered narcotics - no. CT Study completed. Property kc3 :Personal belongings accompany Pt. 11:03 The following High Risk Discharge criteria are identified: None. Transferred to [address] [facility] to accompanying personnel aden Bernal, Robbie Spencer, medic, Transfer form completed. x-rays sent w/ patient. Condition: stable. 11:05 Patient left the ED. [facility] Signatures: Dispatcher [employer] EDMS Renata Kelsey MD MD Perri Bunch, Reg Reg gb Yahaira Castle RN RN Keira TangRN Miesha Hanson mm15 Cheryl AlvaRN RN Poncho French, FILLER LEAF CUTTER LONG FILLER LEAF CUTTER LONG Lulu Delacruz RN RN [facility] Jasper Shin, Reg Reg mpb Wally livingston Corrections: (The following items were deleted from the chart) 08:43 08:42 MAGNESIUM LEVEL+LAB sent. [facility] EDMS 08:43 08:43 FT4&TSH PANEL+LAB sent. [facility] EDMS Chart Complete MTDD
--- NOTE | 2016-09-17 12:06 | EDDOCDS ---
Physician Documentation [facility] Name: Dior Trujillo Age: 35 yrs Sex: Female : 1980 Arrival Date: 09/15/2016 Time: 08:03 Bed 15 Private MD: Sathya Disposition: 09/15 11:02 Critical Care:. ml Disposition: 09/15/16 09:44 Transfer ordered to [facility]. Diagnosis is Syncope and collapse - Brugado syndrome. - Reason for transfer: Higher level of care. - Accepting physician is dr ramirez. - Condition is Unchanged. - Problem is new. - Symptoms are unchanged. Historical: - Allergies: seafood; - Home Meds: 1. Zyrtec 10 mg oral TbDL 10 mg daily - PMHx: none; - PSHx: none; - Social history: Smoking status: Patient states was never smoker of tobacco. No barriers to communication noted, The patient speaks fluent Cymraes, Speaks appropriately for age. - Family history: Pertinent for heart disease. - : The pt / caregiver states he / she is not on anticoagulants. Home medication list is obtained from the patient. - Exposure Risk Screening:: None identified. 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 5 in. (165.10 cm); Pain 7/10; 08:52 BP 125 / 65 RA Supine (auto/lg); Pulse 97; jjr 08:52 BP 121 / 63 RA Sitting (auto/lg); Pulse 111; jjr 08:52 BP 122 / 65 RA Standing (auto/lg); Pulse 105; jjr 08:52 Pulse 98 MON; Pulse Ox 100% ; kc3 08:53 BP 121 / 65 (auto/); kc3 09:07 Pulse 96 MON; Pulse Ox 100% ; kc3 09:08 BP 121 / 62 (auto/); kc3 09:22 Pulse 94 MON; Pulse Ox 97% ; kc3 09:23 BP 119 / 65 (auto/); kc3 09:37 Pulse 96 MON; Pulse Ox 99% ; kc3 09:38 BP 122 / 68 (auto/); kc3 09:52 Pulse 110 MON; Pulse Ox 100% ; kc3 09:53 BP 140 / 81 (auto/); kc3 10:07 Pulse 100 MON; Pulse Ox 97% ; kc3 10:08 BP 136 / 76 (auto/); kc3 10:22 Pulse 100 MON; Pulse Ox 97% ; kc3 10:23 BP 138 / 74 (auto/); kc3 10:37 Pulse 102 MON; Pulse Ox 99% ; kc3 10:38 BP 140 / 80 (auto/); kc3 11:02 BP 135 / 82; Pulse 100; Resp 20; Temp 101.1; Pulse Ox 97% on R/A; Pain 0/10; kc3 08:09 Body Mass Index 40.77 (111.13 kg, 165.10 cm) pml 08:52 tolerated position changes without dizziness jjr 11:02 Dr. Garcia aware of pt temp and pt medicated. kc3 MDM: 08:13 ECG WITH READING ER PHYS+CARDIAG ordered. EDMS 08:20 IV Saline Lock ordered. ml 08:20 NS 0.9% 1000 ml IV at bolus once ordered. ml 08:20 Strep Screen, Nursing ordered. ml 08:20 Home Appliance Technician/Pulse Ox/q 15 min VS ordered. ml 08:20 Rhythm Strip to chart ordered. ml 08:20 Orthostatic VS ordered. ml 08:20 CBC with Diff Ordered. EDMS 08:20 MED Profile Ordered. EDMS 08:20 HCG,Serum Qualitative Ordered. EDMS 08:31 Chest, 1 View Ordered. EDMS 08:37 PT/INR Ordered. EDMS 08:37 PTT Ordered. EDMS 08:45 FT4&TSH PANEL Ordered. EDMS 08:45 MAGNESIUM LEVEL Ordered. EDMS 09:04 Penicillin VK 500 mg PO once ordered. ml 09:05 CIP Ordered. EDMS 09:05 Troponin Ordered. EDMS 09:06 CBC with Diff Reviewed. ml 09:13 HCG,Serum Qualitative Reviewed. ml 09:27 MED Profile Reviewed. ml 09:27 PT/INR Reviewed. ml 09:27 MAGNESIUM LEVEL Reviewed. ml 09:27 HCG,Serum Qualitative Reviewed. ml 09:27 PTT Reviewed. ml 09:27 FT4&TSH PANEL Reviewed. ml 09:28 CT Chest Angio R/O PE Ordered. EDMS 09:41 CIP Reviewed. ml 09:41 Troponin Reviewed. ml 09:42 Magnesium Sulfate 1 grams IVPB once over 0.5 hrs; administer over 30 min ordered. ml 10:18 Financial registration complete. [facility] 10:18 [facility] Payment Agreement was scanned into [employer] and attached to record. mpb 10:59 Acetaminophen Tablet 975 mg PO once ordered. ml 09/16 14:07 T-Sheet-- Draft Copy was scanned into [employer] and attached to record. 14:08 ECG/EKG was scanned into [employer] and attached to record. gb Administered Medications: 09/15 08:43 Drug: NS 0.9% 1000 ml [sodium chloride 0.9 % intravenous solution] Route: IV; Rate: jjr bolus; Site: left antecubital; 10:49 Follow up: IV Status: Completed infusion kc3 09:26 Drug: Penicillin VK 500 mg [penicillin V potassium 250 mg tablet (2 tabs)] Route: PO; kc3 10:02 Drug: Magnesium Sulfate 1 grams [magnesium sulfate 1 gram/100 mL in dextrose 5 % ead intravenous piggyback] {Co-Signature: miki (Wally Mancera RN).} Route: IVPB; Infused Over: 0.5 hrs; Site: left antecubital; 10:49 Follow up: IV Status: Completed infusion kc3 11:04 Drug: Acetaminophen 975 mg [acetaminophen 325 mg tablet (3 tabs)] Route: PO; kc3 Critical Care Time: 11:02 Critical care time: Bedside Care: 90 minutes, Consultation: 10 minutes. Total time: 100 ml minutes Signatures: Dispatcher [employer] Renata Chauhan MD MD Perri Bunch, Reg Reg gb Keira MoiseRN Lulu Moon RN RN kc3 Jasper Shin, Reg Reg mpb Yahaira Castle RN, Emily RN ead David Youngs RN dy The chart was reviewed and I authenticate all verbal orders and agree with the evaluation and treatment provided.Corrections: (The following items were deleted from the chart) 08:43 08:31 FT4&TSH PANEL+LAB ordered. EDMS EDMS 08:43 08:34 MAGNESIUM LEVEL+LAB ordered. EDMS EDMS Attachments: 10:18 [facility] Payment Agreement [facility] 09/16 14:07 T-Sheet-- Draft Copy gb 14:08 ECG/EKG gb Chart Complete MTDD
--- NOTE | 2016-09-17 12:06 | EDDOCDS ---
Physician Documentation [facility] Name: Dior Trujillo Age: 35 yrs Sex: Female : 1980 Arrival Date: 09/15/2016 Time: 08:03 Bed 15 Private MD: Sathya Disposition: 09/15 11:02 Critical Care:. ml Disposition: 09/15/16 09:44 Transfer ordered to [facility]. Diagnosis is Syncope and collapse - Brugado syndrome. - Reason for transfer: Higher level of care. - Accepting physician is dr ramirez. - Condition is Unchanged. - Problem is new. - Symptoms are unchanged. Historical: - Allergies: seafood; - Home Meds: 1. Zyrtec 10 mg oral TbDL 10 mg daily - PMHx: none; - PSHx: none; - Social history: Smoking status: Patient states was never smoker of tobacco. No barriers to communication noted, The patient speaks fluent Serbian, Speaks appropriately for age. - Family history: Pertinent for heart disease. - : The pt / caregiver states he / she is not on anticoagulants. Home medication list is obtained from the patient. - Exposure Risk Screening:: None identified. 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 5 in. (165.10 cm); Pain 7/10; 08:52 BP 125 / 65 RA Supine (auto/lg); Pulse 97; jjr 08:52 BP 121 / 63 RA Sitting (auto/lg); Pulse 111; jjr 08:52 BP 122 / 65 RA Standing (auto/lg); Pulse 105; jjr 08:52 Pulse 98 MON; Pulse Ox 100% ; kc3 08:53 BP 121 / 65 (auto/); kc3 09:07 Pulse 96 MON; Pulse Ox 100% ; kc3 09:08 BP 121 / 62 (auto/); kc3 09:22 Pulse 94 MON; Pulse Ox 97% ; kc3 09:23 BP 119 / 65 (auto/); kc3 09:37 Pulse 96 MON; Pulse Ox 99% ; kc3 09:38 BP 122 / 68 (auto/); kc3 09:52 Pulse 110 MON; Pulse Ox 100% ; kc3 09:53 BP 140 / 81 (auto/); kc3 10:07 Pulse 100 MON; Pulse Ox 97% ; kc3 10:08 BP 136 / 76 (auto/); kc3 10:22 Pulse 100 MON; Pulse Ox 97% ; kc3 10:23 BP 138 / 74 (auto/); kc3 10:37 Pulse 102 MON; Pulse Ox 99% ; kc3 10:38 BP 140 / 80 (auto/); kc3 11:02 BP 135 / 82; Pulse 100; Resp 20; Temp 101.1; Pulse Ox 97% on R/A; Pain 0/10; kc3 08:09 Body Mass Index 40.77 (111.13 kg, 165.10 cm) pml 08:52 tolerated position changes without dizziness jjr 11:02 Dr. Garcia aware of pt temp and pt medicated. kc3 MDM: 08:13 ECG WITH READING ER PHYS+CARDIAG ordered. EDMS 08:20 IV Saline Lock ordered. ml 08:20 NS 0.9% 1000 ml IV at bolus once ordered. ml 08:20 Strep Screen, Nursing ordered. ml 08:20 Supervisor Cereal/Pulse Ox/q 15 min VS ordered. ml 08:20 Rhythm Strip to chart ordered. ml 08:20 Orthostatic VS ordered. ml 08:20 CBC with Diff Ordered. EDMS 08:20 MED Profile Ordered. EDMS 08:20 HCG,Serum Qualitative Ordered. EDMS 08:31 Chest, 1 View Ordered. EDMS 08:37 PT/INR Ordered. EDMS 08:37 PTT Ordered. EDMS 08:45 FT4&TSH PANEL Ordered. EDMS 08:45 MAGNESIUM LEVEL Ordered. EDMS 09:04 Penicillin VK 500 mg PO once ordered. ml 09:05 CIP Ordered. EDMS 09:05 Troponin Ordered. EDMS 09:06 CBC with Diff Reviewed. ml 09:13 HCG,Serum Qualitative Reviewed. ml 09:27 MED Profile Reviewed. ml 09:27 PT/INR Reviewed. ml 09:27 MAGNESIUM LEVEL Reviewed. ml 09:27 HCG,Serum Qualitative Reviewed. ml 09:27 PTT Reviewed. ml 09:27 FT4&TSH PANEL Reviewed. ml 09:28 CT Chest Angio R/O PE Ordered. EDMS 09:41 CIP Reviewed. ml 09:41 Troponin Reviewed. ml 09:42 Magnesium Sulfate 1 grams IVPB once over 0.5 hrs; administer over 30 min ordered. ml 10:18 Financial registration complete. [facility] 10:18 [facility] Payment Agreement was scanned into [employer] and attached to record. mpb 10:59 Acetaminophen Tablet 975 mg PO once ordered. ml 09/16 14:07 T-Sheet-- Draft Copy was scanned into [employer] and attached to record. 14:08 ECG/EKG was scanned into [employer] and attached to record. gb Administered Medications: 09/15 08:43 Drug: NS 0.9% 1000 ml [sodium chloride 0.9 % intravenous solution] Route: IV; Rate: jjr bolus; Site: left antecubital; 10:49 Follow up: IV Status: Completed infusion kc3 09:26 Drug: Penicillin VK 500 mg [penicillin V potassium 250 mg tablet (2 tabs)] Route: PO; kc3 10:02 Drug: Magnesium Sulfate 1 grams [magnesium sulfate 1 gram/100 mL in dextrose 5 % ead intravenous piggyback] {Co-Signature: miki (Wally Mancera RN).} Route: IVPB; Infused Over: 0.5 hrs; Site: left antecubital; 10:49 Follow up: IV Status: Completed infusion kc3 11:04 Drug: Acetaminophen 975 mg [acetaminophen 325 mg tablet (3 tabs)] Route: PO; kc3 Critical Care Time: 11:02 Critical care time: Bedside Care: 90 minutes, Consultation: 10 minutes. Total time: 100 ml minutes Signatures: Dispatcher [employer] Renata Chauhan MD MD Perri Bunch, Reg Reg gb Keira MoiseRN Lulu Moon RN RN kc3 Jasper Shin, Reg Reg mpb Yahaira Castle RN, Emily RN ead David Youngs RN dy The chart was reviewed and I authenticate all verbal orders and agree with the evaluation and treatment provided.Corrections: (The following items were deleted from the chart) 08:43 08:31 FT4&TSH PANEL+LAB ordered. EDMS EDMS 08:43 08:34 MAGNESIUM LEVEL+LAB ordered. EDMS EDMS Attachments: 10:18 [facility] Payment Agreement [facility] 09/16 14:07 T-Sheet-- Draft Copy gb 14:08 ECG/EKG gb Chart Complete MTDD
== END 2016-09-15 11:05 | disposition short-term general hospital (02) ==
LOC: M ED 08:03
DX: J20.9 Acute bronchitis, unspecified (principal); J01.90 Acute sinusitis, unspecified; J02.0 Streptococcal pharyngitis; R55 Syncope and collapse; Z79.899 Other long term (current) drug therapy; Z91.013 Allergy to seafood
CPT/HCPCS: 36415; 71010; 71275; 80048; 82550; 82553; 83735; 84439; 84443; 84703; 85025; 85610; 85730; 93005; 93041; 96361; 96365; 99285; J3475; Q9967

== ENCOUNTER → 2016-09-20 | Outpatient (REF) | payer OTHER | LOC: M LAB REF 10:31 | PROVIDERS: ATTEND Physician Assistant | DX: R30.0 Dysuria (principal) ==

== ENCOUNTER → 2016-12-08 | Outpatient (REF) | payer OTHER | LOC: M LAB REF 18:08 | PROVIDERS: ATTEND Physician Assistant | DX: J02.9 Acute pharyngitis, unspecified (principal) ==

== ENCOUNTER → 2018-03-03 | Outpatient (REF) | payer OTHER | LOC: M LAB REF 19:11 | DX: R30.0 Dysuria (principal) ==

== ENCOUNTER → 2018-11-27 | Outpatient (REF) | payer OTHER | LOC: M LAB REF 16:11 | PROVIDERS: ATTEND Physician Assistant | DX: J02.9 Acute pharyngitis, unspecified (principal) ==

== ENCOUNTER → 2020-07-03 | Outpatient (CLI) | payer OTHER ==
--- NOTE | 2020-07-03 21:06 | REP ---
INDICATION: ANATOMY COMPARISON: None. TECHNIQUE: Transabdominal obstetrical ultrasound with color Doppler evaluation. FINDINGS: Examination demonstrates a single live intrauterine in variable presentation. motion is identified by technologist. Placenta is noted posterior and grade 1 with evidence for partial previa with the placental tip incompletely crossing the cervical os. Amniotic fluid volume is normal. Cervix measures 4.0 cm in length and appears closed.. Gestational age by LMP 21 weeks 0 days with CHAPO 11/13/2020. Gestational age by current measurements 20 weeks 5 days with CHAPO 11/15/2020. FHR equals 146 beats per minute. BPD: 4.8 cm 20 weeks 4 days HC: 18.8 cm 21 weeks 1 day AC: 15.8 cm 20 weeks 6 days FL: 3.3 cm 20 weeks 1 day HL: 3.3 cm 21 weeks 0 days HC/AC: 1.19 Estimated weight 368 grams (28thpercentile). Anatomical assessment demonstrates normal structures including cranium, choroid plexus, cavum, cerebellum/posterior fossa, facial features, lungs, four-chamber heart/ventricular outflow tracts, diaphragm, stomach, cord insertion/three-vessel cord, kidneys/bladder, spine, and extremities. IMPRESSION: Single live intrauterine in variable presentation demonstrating appropriate interval growth. Anatomical assessment is complete and normal. Posterior placenta with partial previa. <Electronically signed by Hesham Baez > 07/03/20 [id number]
== END ==
LOC: M WHC 15:01
PROVIDERS: ATTEND Obstetrics & Gynecology
DX: O09.522 Supervision of elderly multigravida, second trimester (principal); Z3A.21 21 weeks gestation of pregnancy; O44.22 Partial placenta previa NOS or without hemorrhage, second trimester

== ENCOUNTER → 2020-08-16 | Outpatient (CLI) | payer OTHER ==
[2020-08-16 08:43] LABS: HEMATOCRIT 34.7 % (36.0-47.0); HEMOGLOBIN 10.8 g/dl (12.0-15.5); MEAN CORPUSCULAR HEMOGLOBIN 28.9 pg (27.0-33.0); MEAN CORPUSCULAR HGB CONC 31.1 g/dl (32.0-36.5); MEAN CORPUSCULAR VOLUME 92.8 fl (80.0-96.0); PLATELET COUNT, AUTOMATED 337 10^3/uL (150-450); RED BLOOD COUNT 3.74 10^6/uL (4.00-5.40)
== END ==
LOC: M LAB 06:14
PROVIDERS: ATTEND Obstetrics & Gynecology
DX: Z36.89 Encounter for other specified antenatal screening (principal); O09.522 Supervision of elderly multigravida, second trimester; Z3A.00 Weeks of gestation of pregnancy not specified

== ENCOUNTER → 2020-09-18 | Outpatient (CLI) | payer OTHER ==
--- NOTE | 2020-09-18 11:33 | REP ---
INDICATION: REEVAL PLACENTA LOCATION. COMPARISON: Comparison study 03 July 2020.. TECHNIQUE: Transabdominal and transvaginal obstetric sonography. FINDINGS: Scanning through the gravid uterus demonstrates a viable single intrauterine gestation in transverse, head to the maternal right lie. motion is observed and heart rate is recorded at 156 beats per minute. A posterior placenta is seen, grade 2, without evidence of placenta previa. Closed cervical length is measured at 4.3 cm transvaginally.. No extrauterine abnormality is observed. Amniotic fluid is subjectively normal. MARY is normal at 15.1 cm. The the inferior tip of the placenta is 5 cm from the internal cervical os.. anatomic survey was not performed with this exam.. IMPRESSION: Viable single intrauterine gestation at 32 weeks 0 days by previous composite sonographic criteria. CHAPO by today's sonography November 13, 2020. No complication identified. <Electronically signed by Dg Coleman > 09/18/20 [id number]
== END ==
LOC: M WHC 09:27
PROVIDERS: ATTEND Obstetrics & Gynecology
DX: O44.02 Complete placenta previa NOS or without hemorrhage, second trimester (principal); Z3A.32 32 weeks gestation of pregnancy

== ENCOUNTER → 2020-10-19 | Outpatient (REF) | payer OTHER | LOC: M LAB REF 11:22 | PROVIDERS: ATTEND Obstetrics & Gynecology | DX: Z36.85 Encounter for antenatal screening for Streptococcus B (principal) ==

== ENCOUNTER → 2022-11-20 | Outpatient (REF) | payer OTHER ==
[~2022-11-20] MED LIST: CETI10CA2 PO; IBUP80TA PO; PERCOCET PO
[2022-11-20 13:15] LABS: HEMATOCRIT 32.5 % (36.0-47.0); HEMOGLOBIN 9.5 g/dl (12.0-15.5); MEAN CORPUSCULAR HEMOGLOBIN 20.7 pg (27.0-33.0); MEAN CORPUSCULAR HGB CONC 29.2 g/dl (32.0-36.5); PLATELET COUNT, AUTOMATED 523 10^3/uL (150-450); RED BLOOD COUNT 4.58 10^6/uL (4.00-5.40)
[2022-11-20 16:54] LABS: HCG, SERUM QUANTITATIVE 29318.4 MIU/ML (<4.2)
[2022-11-21 17:15] LABS: HEPATITIS B SURFACE ANTIGEN NEGATIVE (NEGATIVE)
[2022-11-21 17:29] LABS: HIV 1&2 SCREEN ATELLICA NEGATIVE (NEGATIVE)
[2022-11-21 17:37] LABS: HEPATITIS C VIRUS ABY INDEX 0.1 INDEX (<0.8)
== END ==
LOC: M LAB REF 12:14
PROVIDERS: ATTEND Obstetrics & Gynecology
DX: O36.80X0 Pregnancy with inconclusive fetal viability, not applicable or unspecified (principal); Z32.01 Encounter for pregnancy test, result positive

== ENCOUNTER → 2023-02-17 | Outpatient (CLI) | payer OTHER | LOC: M WHC 12:03 | PROVIDERS: ATTEND Obstetrics & Gynecology | DX: Z34.82 Encounter for supervision of other normal pregnancy, second trimester (principal) ==

== ENCOUNTER → 2023-03-17 | Outpatient (CLI) | payer OTHER | LOC: M WHC 10:47 | PROVIDERS: ATTEND Obstetrics & Gynecology | DX: Z34.82 Encounter for supervision of other normal pregnancy, second trimester (principal) ==

== ENCOUNTER → 2023-04-04 | Outpatient (CLI) | payer OTHER ==
[2023-04-04 09:03] LABS: HEMATOCRIT 30.4 % (36.0-47.0); MEAN CORPUSCULAR HEMOGLOBIN 22.9 pg (27.0-33.0); MEAN CORPUSCULAR HGB CONC 29.6 g/dl (32.0-36.5); MEAN CORPUSCULAR VOLUME 77.4 fl (80.0-96.0); PLATELET COUNT, AUTOMATED 389 10^3/uL (150-450); RED BLOOD COUNT 3.93 10^6/uL (4.00-5.40); WHITE BLOOD COUNT 10.6 10^3/uL (4.0-10.0)
== END ==
LOC: M LAB 06:37
PROVIDERS: ATTEND Obstetrics & Gynecology
DX: Z34.82 Encounter for supervision of other normal pregnancy, second trimester (principal)

== ENCOUNTER → 2023-06-18 | Outpatient (REF) | payer OTHER ==
[~2023-06-18] MED LIST changes: +FERR325T81 PO
== END ==
LOC: M LAB REF 12:07
PROVIDERS: ATTEND Obstetrics & Gynecology
DX: Z34.83 Encounter for supervision of other normal pregnancy, third trimester (principal)

== ENCOUNTER 2023-07-03 05:27 | Inpatient (IN) | payer OTHER ==
[2023-07-03] VITALS (8 sets, daily range): BP systolic 118–143; BP diastolic 67–81; O2SAT 96–98
[~2023-07-03] VITALS: Ht 165.1 cm; Wt 135.2 kg
[2023-07-03] MEDS ORDERED: LACTATED RINGER'S 1000 ML IV STA (05:33)
[2023-07-03] MEDS ORDERED: LR 1,000 ML IV SCH ×2 (05:35→09:05)
[2023-07-03] MEDS ORDERED: ceFAZolin SOD 2 GM in IV 1 EA IV ONE (06:00)
[2023-07-03] MEDS ORDERED: BICITRA 30ML SOLN UDC PO ONE (06:00)
[2023-07-03 06:37] LABS: HEMATOCRIT 32.7 % (36.0-47.0); HEMOGLOBIN 10.5 g/dl (12.0-15.5); MEAN CORPUSCULAR HEMOGLOBIN 25.1 pg (27.0-33.0); MEAN CORPUSCULAR HGB CONC 32.1 g/dl (32.0-36.5); PLATELET COUNT, AUTOMATED 393 10^3/uL (150-450); RED BLOOD COUNT 4.19 10^6/uL (4.00-5.40); WHITE BLOOD COUNT 9.7 10^3/uL (4.0-10.0)
[2023-07-03] MEDS ORDERED: OXYTOCIN 30UNITS IN 0.9% NaCl 500ML IV BAG As Ordered ONE ×2 (07:32→09:23)
[2023-07-03] MEDS ORDERED: ePHEDrine SULFATE 25 MG/5 ML(5MG/ML) SYRINGE As Ordered ONE (07:32)
[2023-07-03] MEDS ORDERED: PHENYLephrine 500MCG 5ML (100MCG/ML) SYRINGE As Ordered ONE (07:32)
[2023-07-03] MEDS ORDERED: MORPHINE PRES-FREE INJ 10 MG/10 ML VIAL As Ordered ONE (07:32)
[2023-07-03] MEDS ORDERED: OXYTOCIN DRIP 30 UNITS in IV 1 EA IV SCH (07:40)
[2023-07-03] MEDS ORDERED: RHOGAM 300MCG (1500IU) INJ IM SCH (07:40)
[2023-07-03] MEDS ORDERED: PERCOCET 5MG/325MG TAB PO PRN (07:40)
[2023-07-03] MEDS ORDERED: PERC5TAB12 PO (07:40)
[2023-07-03] MEDS ORDERED: SIMETHICONE 80MG CHEW TAB PO PRN (07:40)
[2023-07-03] MEDS ORDERED: MOM 30ML SUSPENSION UDC PO PRN (07:40)
[2023-07-03] MEDS ORDERED: KETOROLAC 60MG 2ML VIAL As Ordered ONE (08:23)
[2023-07-03] MEDS ORDERED: ONDANSETRON 4MG 2ML VIAL As Ordered ONE (08:23)
[2023-07-03 08:49] LABS: CORD GAS ABE V -14.6; CORD GAS HCO3 V 16.3 MMOL/L; CORD GAS O2 SAT V 73.3 %; CORD GAS PCO2 V 58.6 mmHg; CORD GAS PH V 7.063 UNITS; CORD GAS PO2 V 43.6 mmHg; CORD GAS SBC V 13.2 MMOL/L; CORD GAS TCO2 V 18.1 MMOL/L
[2023-07-03 08:51] LABS: CORD GAS ABE A -17.7; CORD GAS HCO3 A 16.9 MMOL/L; CORD GAS O2 SAT A 53.1 %; CORD GAS PCO2 A 86.8 mmHg; CORD GAS PO2 A 36.7 mmHg; CORD GAS SBC A 10.9 MMOL/L; CORD GAS TCO2 A 19.6 MMOL/L
[2023-07-03 08:55] LABS: CORD GAS PH A 6.908 UNITS
[2023-07-03] MEDS ORDERED: PRENATAL VITAMINS CHEWABLE TABLET PO SCH (09:00)
[2023-07-03] MEDS ORDERED: METOCLOPRAMIDE INJ 10MG/2ML VIAL IV PRN (09:05)
[2023-07-03] MEDS ORDERED: NALOXONE INJ 0.4MG/1ML VIAL IV PRN ×2 (09:05)
[2023-07-03] MEDS ORDERED: oxyCODONE 5MG TAB PO PRN (09:05)
[2023-07-03] MEDS ORDERED: MEPERIDINE 25 MG/ML 1ML VIAL IV PRN (09:05)
[2023-07-03] MEDS ORDERED: **NOTE PATIENT COMMENT** MISC XX SCH (09:05)
[2023-07-03] MEDS ORDERED: NALBUPHINE HCL 1MG/0.1ML (100MG/10ML) MDV IV PRN (09:05)
[2023-07-03] MEDS ORDERED: oxyCODONE 5MG TAB As Ordered ONE (09:57)
[2023-07-03] MEDS: DOCUSATE SODIUM 100MG CAPSULE PO SCH ×2 (10:30→20:11)
[2023-07-03] MEDS: diphenhydrAMINE 50MG/ML VIAL IV PRN ×3 (12:34→21:24)
[2023-07-03] MEDS: FERROUS SULFATE 325MG TAB PO SCH (12:34)
[2023-07-03] MEDS: CETIRIZINE (ZyrTEC) 10 MG TAB PO SCH (12:34)
[2023-07-03] MEDS ORDERED: LR 300 ML IV ONE (14:35)
[2023-07-03] MEDS: KETOROLAC 30 MG/ML 1ML VIAL IV SCH ×2 (14:53→20:11)
[2023-07-03] MEDS: SLF 3 ML SYR IV SCH ×2 (17:05→20:10)
[2023-07-03] MEDS: PRENATAL VITAMINS CHEWABLE TABLET PO SCH (20:11)
[2023-07-04] VITALS (7 sets, daily range): BP systolic 105–140; BP diastolic 55–81; TEMP 98.9; O2SAT 96–99
[2023-07-04] MEDS: SLF 3 ML SYR IV SCH (02:33)
[2023-07-04] MEDS: KETOROLAC 30 MG/ML 1ML VIAL IV SCH (02:33)
[2023-07-04 06:59] LABS: HEMATOCRIT 26.2 % (36.0-47.0); MEAN CORPUSCULAR HEMOGLOBIN 24.5 pg (27.0-33.0); MEAN CORPUSCULAR HGB CONC 30.9 g/dl (32.0-36.5); MEAN CORPUSCULAR VOLUME 79.4 fl (80.0-96.0); PLATELET COUNT, AUTOMATED 297 10^3/uL (150-450); WHITE BLOOD COUNT 9.2 10^3/uL (4.0-10.0)
[2023-07-04 07:00] LABS: HEMOGLOBIN 8.1 g/dl (12.0-15.5)
[2023-07-04] MEDS: DOCUSATE SODIUM 100MG CAPSULE PO SCH ×2 (09:04→21:50)
[2023-07-04] MEDS: FERROUS SULFATE 325MG TAB PO SCH (09:04)
[2023-07-04] MEDS: CETIRIZINE (ZyrTEC) 10 MG TAB PO SCH (09:04)
[2023-07-04] MEDS: IBUPROFEN 800 MG TAB PO SCH ×2 (11:41→18:29)
[2023-07-04] MEDS: PRENATAL VITAMINS CHEWABLE TABLET PO SCH (21:50)
[2023-07-05 02:00] VITALS: BP 131/79; O2SAT 98
[2023-07-05] MEDS: IBUPROFEN 800 MG TAB PO SCH ×2 (02:59→11:40)
[2023-07-05 06:00] VITALS: BP 136/77; O2SAT 98
[2023-07-05] MEDS: CETIRIZINE (ZyrTEC) 10 MG TAB PO SCH (08:48)
[2023-07-05] MEDS: DOCUSATE SODIUM 100MG CAPSULE PO SCH (08:48)
[2023-07-05] MEDS: FERROUS SULFATE 325MG TAB PO SCH (08:48)
[2023-07-05] MEDS ORDERED: MEASLES,MUMPS,RUBELLA VACCINE INJ (MMR-II) SC.IMMUN ONE (09:00)
[2023-07-05 10:00] VITALS: BP 120/59; O2SAT 99
== END 2023-07-05 14:35 | disposition home or self-care (01) | DRG 788 ==
LOC: M LDI 05:27 → M OBS 10:23
PROVIDERS: ADMIT Obstetrics & Gynecology; ATTEND Obstetrics & Gynecology
PROC: 0HB7XZZ Excision of Abdomen Skin, External Approach (ICD-10-PCS; 2023-07-03)
PROC: 10D00Z1 Extraction of Products of Conception, Low, Open Approach (ICD-10-PCS; principal; 2023-07-03 07:30)
DX: O34.211 Maternal care for low transverse scar from previous cesarean delivery (principal); Z37.0 Single live birth; Z3A.39 39 weeks gestation of pregnancy; Z91.013 Allergy to seafood

== ENCOUNTER → 2023-12-26 | Outpatient (REF) | payer OTHER ==
[~2023-12-26] MED LIST changes: +PERC5TAB12 PO
[2023-12-26 18:46] LABS: PERCENT SATURATION 27.3 % (13.2-45.0)
[2023-12-26 18:49] LABS: FERRITIN 15.5 NG/ML (7.3-270.7)
== END ==
LOC: M LAB REF 16:36
PROVIDERS: ATTEND Internal Medicine
DX: D50.9 Iron deficiency anemia, unspecified (principal)

== ENCOUNTER → 2024-06-14 | Outpatient (REF) | payer OTHER ==
[2024-06-14 19:15] LABS: PERCENT SATURATION 21.5 % (13.2-45.0)
[2024-06-14 19:17] LABS: FERRITIN 33.3 NG/ML (7.3-270.7)
== END ==
LOC: M LAB REF 16:29
PROVIDERS: ATTEND Internal Medicine
DX: D64.9 Anemia, unspecified (principal)

== ENCOUNTER → 2025-07-04 | Outpatient (REF) | payer OTHER ==
[2025-07-04 14:43] LABS: IRON (FE) 134.0 UG/DL (50-170); PERCENT SATURATION 43.5 % (13.2-45.0)
== END ==
LOC: M LAB REF 14:01
PROVIDERS: ATTEND Internal Medicine
DX: E61.1 Iron deficiency (principal)